=== PATIENT | female | born 1970 | race Caucasian/White ===

== ENCOUNTER → 2021-02-06 | Emergency (ER) | payer OTHER, BC ==
[~2021-02-06] VITALS: Ht 162.6 cm; Wt 73.5 kg
[~2021-02-06] MED LIST: HYDR-3917 PO; HYDROcodone/ACETAMIN 5-325 MG TAB (NORCO/ VICODIN) PO ONE; IBUP-1969 PO; IBUPROFEN 600 MG TABLET PO ONE; NOREPINEPHRINE 4 MG/4 ML VIAL IV ONE; TRAM50TA PO
[2021-02-06 06:15] VITALS: BP_SYST 179
--- NOTE | 2021-02-06 08:30 | NUR ---
Patient given written and verbal discharge instructions and verbalizes understanding. ER MD discussed with patient the results and treatment provided. Patient in stable condition. ID arm band removed. Rx of NORCO,IBUPROFEN given. Patient educated on pain management and to follow up with PMD. Pain Scale 2 Opportunity for questions provided and answered. Medication side effect fact sheet provided.
== END | disposition home or self-care (01) ==
LOC: SED 06:12
DX: S16.1XXA Strain of muscle, fascia and tendon at neck level, initial encounter (principal); S60.222A Contusion of left hand, initial encounter; S20.212A Contusion of left front wall of thorax, initial encounter; Z79.899 Other long term (current) drug therapy; V49.49XA Driver injured in collision with other motor vehicles in traffic accident, initial encounter; Y93.89 Activity, other specified; Y92.89 Other specified places as the place of occurrence of the external cause; Y99.8 Other external cause status
CPT/HCPCS: 71045; 72040-TC; 99284